=== PATIENT | male | born 1985 | race Caucasian/White ===

== ENCOUNTER 2017-02-11 23:49 | Emergency (ER) | payer SELFPAY ==
[2017-02-12 00:06] VITALS: TEMP 98; BMI 38.4
[2017-02-12] MEDS ORDERED: METOPROLOL TARTRATE 5 MG/5 ML VIAL IVPUSH ONE (00:37)
--- NOTE | 2017-02-12 00:37 | PDOC ---
History of Present Illness - General History Source: Patient Exam Limitations: No Limitations - History of Present Illness Initial Comments: 02/12/17 00:38 The patient is a 31 year old male with no significant past medical history who presents to the ED for elevated blood pressure. Patient reports he noted his blood pressure has been elevated for the past 2 weeks, however today he noted it to be over 200/100 and decided to come in. He reports associated lightheadedness and mild SOB within the past 2 weeks. Denies headache, vision changes, or paresthesias. Denies lightheadedness, diaphoresis, chest pain, jaw pain, shoulder pain, arm pain, nausea, or vomiting. States he has not been seen by a PMD in over 5 years. The patient denies fever, chills, cough, abdominal pain, and diarrhea. Allergies: NKDA Social History: No alcohol, tobacco, or drug use reported. Past Surgical History: None reported PCP: None reported <Katia Au - Last Filed: 02/12/17 02:39> - General History Source: Patient <JoséManuel bell - Last Filed: 02/12/17 06:45> - General Stated Complaint: BLOOD PRESSURE PROBLEM Time Seen by Provider: 02/12/17 00:02 Past History <Katia Au - Last Filed: 02/12/17 02:39> - Past Medical History Thyroid Disease: No - Immunization History Td Vaccination: No Immunization Up to Date: No - Psycho/Social/Smoking Cessation Hx Anxiety: No Suicidal Ideation: No Smoking Status: No Smoking History: Never smoked Have you smoked in the past 12 months: No Information on smoking cessation initiated: No Hx Alcohol Use: No Drug/Substance Use Hx: No Substance Use Type: Alcohol <Manuel Wilson - Last Filed: 02/12/17 06:45> - Past Medical History Allergies/Adverse Reactions: Allergies Allergy/AdvReac Type Severity Reaction Status Date / Time No Known Allergies Allergy Verified 02/12/17 00:03 Home Medications: Ambulatory Orders Ondansetron [Zofran *Odt*] 4 mg SL PRN PRN #14 od.tablet 03/26/15 Enalapril Maleate [Vasotec] 10 mg PO DAILY #30 tablet 02/12/17 Review of Systems - Review of Systems Able to Perform ROS?: Yes Comments:: 02/12/17 00:39 CONSTITUTIONAL: +lightheadedness Absent: fever, no chills, no fatigue EYES: Absent: visual changes ENT: Absent: ear pain, no sore throat CARDIOVASCULAR: +elevated blood pressure Absent: chest pain, no palpitations RESPIRATORY: +SOB Absent: cough GI: Absent: abdominal pain, no nausea, no vomiting, no constipation, no diarrhea GENITOURINARY: Absent: dysuria, no frequency, no hematuria MUSCULOSKELETAL: Absent: back pain, no arthralgia, no myalgia SKIN: Absent: rash NEURO: Absent: headache <Katia Au - Last Filed: 02/12/17 02:39> *Physical Exam - Vital Signs Last Vital Signs Temp Pulse Resp BP Pulse Ox 98.0 F 100 H 20 219/108 100 02/12/17 00:03 02/12/17 00:03 02/12/17 00:03 02/12/17 00:03 02/12/17 00:03 - Physical Exam Comments: 02/12/17 00:39 GENERAL: Well-appearing, well-nourished. No apparent distress. HEENT: Normocephalic, atraumatic. PERRL, EOM intact. CARDIOVASCULAR: Normal S1, S2. Regular rate and rhythm. PULMONARY: Clear to auscultation bilaterally. ABDOMEN: Soft, non-distended, non-tender. EXTREMITIES: Normal ROM in all four extremities. No gross deformities. SKIN: Warm, dry. No rash NEUROLOGICAL: No focal neurological deficits. <Katia Au - Last Filed: 02/12/17 02:39> - Vital Signs Last Vital Signs Temp Pulse Resp BP Pulse Ox 98.0 F 100 H 20 219/108 100 02/12/17 00:03 02/12/17 00:03 02/12/17 00:03 02/12/17 00:03 02/12/17 00:03 <Manuel Wilson - Last Filed: 02/12/17 06:45> Heart Score/ECG Review - ECG Impressions Comment:: 02/12/17 02:40 NSR @98bpm Possible L atrial enlargement Borderline ECG <Katia Au - Last Filed: 02/12/17 02:39> ED Treatment Course - LABORATORY CBC & Chemistry Diagram: 04/27/17 00:49 02/12/17 00:49 <Katia Au - Last Filed: 02/12/17 02:39> - LABORATORY CBC & Chemistry Diagram: 02/12/17 00:49 02/12/17 00:49 <Manuel Wilson - Last Filed: 02/12/17 06:45> Medical Decision Making - Medical Decision Making 02/12/17 06:24 Dr. Wilson: The scribe's documentation has been prepared under my direction and personally reviewed by me in its entirery. I confirm that the note above accurately reflects all work, treatment, procedures, and medical decision making performed by me. 02/12/17 06:27 Pt currently asymptomatic, however BP is still elevated. Pt advised to start to follow with a primary care doctor. Rx Vasotec 10mg to Pharmacy. <Manuel Wilson - Last Filed: 02/12/17 06:45> *DC/Admit/Observation/Transfer - Attestations Scribe Attestion: 02/12/17 00:39 Documentation prepared by Katia Au, acting as medical supply technician for Manuel Wilson MD <Katia Au - Last Filed: 02/12/17 02:39> - Discharge Dispostion Admit: No <Manuel Wilson - Last Filed: 02/12/17 06:45> Diagnosis at time of Disposition: Hypertension Qualifiers: Hypertension type: essential hypertension Qualified Code(s): I10 - Essential ( primary) hypertension - Prescriptions Prescriptions: Enalapril Maleate [Vasotec] 10 mg PO DAILY #30 tablet - Referrals Referrals: Erma Levy MD [Staff Physician] - Aldo Garsia MD [Staff Physician] - Dominick Negron MD [Staff Physician] - - Patient Instructions Printed Discharge Instructions: DI for High Blood Pressure - Post Discharge Activity Work/School Note: Back to Work
[2017-02-12] MEDS ORDERED: METOPROLOL TARTRATE 5 MG/5 ML VIAL ONE (00:53)
[2017-02-12 00:57] LABS: BASOPHIL 0.3 % (0-2.0); EOSINOPHIL 1.4 % (0-4.5); MCH 26.6 pg (25.7-33.7); MCHC 32.9 g/dl (32.0-35.9); MEAN CELL VOLUME 80.9 fl (80-96); MEAN PLT VOLUME 7.8 fl (7.5-11.1); NEUTROPHILS 64.5 % (42.8-82.8); PLATELET COUNT 260 K/MM3 (134-434); RDW 12.4 % (11.9-15.9); WHITE BLOOD COUNT 8.7 K/mm3 (4.0-10.0)
[2017-02-12 01:10] LABS: INR 1.05 (0.82-1.09); PROTHROMBIN TIME (PATIENT) 11.6 SEC (9.98-11.88)
[2017-02-12 01:21] LABS: ALBUMIN 3.9 g/dl (3.4-5.0); ANION GAP 12 (8-16); BILIRUBIN,TOTAL 0.2 mg/dL (0.2-1.0); CALCIUM 9.3 mg/dL (8.5-10.1); CO2 27 mmol/L (21-32); COCKROFT - GAULT 159.33; CREATININE 1.1 mg/dL (0.7-1.3); GLUCOSE,RANDOM 94 mg/dL (74-106); SGOT/AST 36 U/L (15-37); SGPT/ALT 52 U/L (12-78); TOT PROT 7.5 g/dl (6.4-8.2)
[2017-02-12 01:23] LABS: ALK PHOS 66 U/L (45-117); TROPONIN I 0.05 ng/ml (0.00-0.05)
[2017-02-12] MEDS ORDERED: hydrALAZINE HCL 20 MG/ML VIAL IVPUSH ONE (03:02)
[2017-02-12] MEDS ORDERED: hydrALAZINE HCL 20 MG/ML VIAL ONE (03:32)
[2017-02-12] MEDS ORDERED: LABETALOL HCL 5 MG/1 ML (100MG/20 ML VIAL) IVPUSH ONE (04:52)
[2017-02-12 04:53] VITALS: BP 194/102; PULSE 91
[2017-02-12] MEDS ORDERED: ENALAPRIL MALEATE 10 MG TABLET (FP) PO SCH (06:30)
[2017-02-12] MEDS ORDERED: ENALAPRIL MALEATE 5 MG TABLET (FP) ONE (06:33)
--- NOTE | 2017-02-12 13:26 | EKG ---
Test Reason : Blood Pressure : / mmHG Vent. Rate : 098 BPM Atrial Rate : 098 BPM P-R Int : 168 ms QRS Dur : 078 ms QT Int : 326 ms P-R-T Axes : 044 033 018 degrees QTc Int : 416 ms NORMAL SINUS RHYTHM POSSIBLE LEFT ATRIAL ENLARGEMENT BORDERLINE ECG NO PREVIOUS ECGS AVAILABLE Confirmed by DEBBIE CELAYA MD ([id number]) on 02/12/2017 1:26:27 PM Referred By: Confirmed By:DEBBIE CELAYA MD
== END 2017-02-12 07:00 | disposition home or self-care (01) ==
LOC: JER 23:49
PROC: 3E033GC Introduction of Other Therapeutic Substance into Peripheral Vein, Percutaneous Approach (ICD-10-PCS; principal; 2017-02-11)
DX: I10 Essential (primary) hypertension (principal)
CPT/HCPCS: 36415; 80053; 82550; 82553; 83690; 83880; 84484; 85025; 85610; 93005; 93010; 99283-25

== ENCOUNTER 2017-04-15 17:42 | Emergency (ER) | payer SELFPAY ==
[2017-04-15 17:51] VITALS: TEMP 97.8; BMI 37.5
--- NOTE | 2017-04-15 19:40 | PDOC ---
History of Present Illness - General History Source: Patient Exam Limitations: No Limitations - History of Present Illness Initial Comments: 04/15/17 20:12 The patient is a 31 year old male with significant past medical history of recently diagnosed hypertension who presents to the ED for 2 days of left-sided chest discomfort. Patient describes his pain as a pressure-like sensation at the left sternal border with associated SOB and occasional headache. He describes his headache as throbbing and diffuse, but has not taken any medications for his headache. States he was recently stated on vasotec 10 mg due to his elevated blood pressure and since then his blood pressure has been controlled. However, he was just recently evaluated and it was noted that his blood pressure was elevated some more. Thus, his vasotec was increased to 20 mg in the morning with an additional 10 mg at night. Denies diaphoresis, lightheadedness, palpitations, jaw pain, shoulder pain, arm pain, leg swelling, nausea, or vomiting. Patient also admits to having some weight loss. Denies recent travels or sick contacts. The patient denies fever, chills, cough, abdominal pain, and diarrhea. Allergies: NKDA Social History: No alcohol, tobacco, or drug use reported. Past Surgical History: None reported PCP: None reported <Katia Au - Last Filed: 04/15/17 20:12> - General History Source: Patient <Manuel Wilson - Last Filed: 04/16/17 03:00> - General Chief Complaint: Chest Pain Stated Complaint: CHEST PAIN Time Seen by Provider: 04/15/17 19:36 Past History <Katia Au - Last Filed: 04/15/17 20:12> - Past Medical History Thyroid Disease: No - Immunization History Td Vaccination: No Immunization Up to Date: No - Psycho/Social/Smoking Cessation Hx Anxiety: No Suicidal Ideation: No Smoking Status: No Smoking History: Never smoked Have you smoked in the past 12 months: No Hx Alcohol Use: No Drug/Substance Use Hx: No Substance Use Type: None <SteveManuel - Last Filed: 04/16/17 03:00> - Past Medical History Allergies/Adverse Reactions: Allergies Allergy/AdvReac Type Severity Reaction Status Date / Time No Known Allergies Allergy Verified 04/15/17 17:50 Home Medications: Ambulatory Orders Enalapril Maleate [Vasotec] 10 mg PO DAILY #30 tablet 02/12/17 Review of Systems - Review of Systems Able to Perform ROS?: Yes Comments:: 04/15/17 20:12 CONSTITUTIONAL: Absent: fever, no chills, no fatigue EYES: Absent: visual changes ENT: Absent: ear pain, no sore throat CARDIOVASCULAR: +left sternal border discomfort Absent: no palpitations RESPIRATORY: +SOB Absent: cough GI: Absent: abdominal pain, no nausea, no vomiting, no constipation, no diarrhea GENITOURINARY: Absent: dysuria, no frequency, no hematuria MUSCULOSKELETAL: Absent: back pain, no arthralgia, no myalgia SKIN: Absent: rash NEURO: +diffuse headache <Katia Au - Last Filed: 04/15/17 20:12> *Physical Exam - Vital Signs Last Vital Signs Temp Pulse Resp BP Pulse Ox 97.8 F 95 H 20 180/109 98 04/15/17 17:47 04/15/17 17:47 04/15/17 17:47 04/15/17 17:47 04/15/17 17:47 - Physical Exam Comments: 04/15/17 20:12 GENERAL: Well-appearing, well-nourished. No apparent distress. HEENT: Normocephalic, atraumatic. PERRL, EOM intact. CARDIOVASCULAR: Regular rate and rhythm. Normal S1, S2. PULMONARY: No evidence of respiratory distress. Clear to auscultation bilaterally. ABDOMEN: Soft, non-distended, non-tender. EXTREMITIES: Normal ROM in all four extremities. No gross deformities. SKIN: Warm, dry. No rash NEUROLOGICAL: No focal neurological deficits. <Katia Au - Last Filed: 04/15/17 20:12> - Vital Signs Last Vital Signs Temp Pulse Resp BP Pulse Ox 97.8 F 95 H 20 180/109 98 04/15/17 17:47 04/15/17 17:47 04/15/17 17:47 04/15/17 17:47 04/15/17 17:47 <Manuel Wilson - Last Filed: 04/16/17 03:00> Heart Score/ECG Review - ECG Impressions Comment:: 04/15/17 20:12 NSR @92bpm Possible L atrial enlargement Cannot r/o Anterolateral infarct, age undetermined Abnormal ECG <Katia Au - Last Filed: 04/15/17 20:12> ED Treatment Course - LABORATORY CBC & Chemistry Diagram: 04/15/17 20:20 04/15/17 20:20 <Manuel Wilson - Last Filed: 04/16/17 03:00> Medical Decision Making - Medical Decision Making 04/16/17 03:00 Dr. Wilson: The scribe's documentation has been prepared under my direction and personally reviewed by me in its entirery. I confirm that the note above accurately reflects all work, treatment, procedures, and medical decision making performed by me. <Manuel Wilson - Last Filed: 04/16/17 03:00> *DC/Admit/Observation/Transfer - Attestations Scribe Attestion: 04/15/17 20:13 Documentation prepared by Katia Au, acting as medical auditor for Manuel Wilson MD/DO. <Katia Au - Last Filed: 04/15/17 20:12> - Discharge Dispostion Admit: No <Manuel Wilson - Last Filed: 04/16/17 03:00> Diagnosis at time of Disposition: Hypertension Qualifiers: Hypertension type: essential hypertension Qualified Code(s): I10 - Essential ( primary) hypertension Chest pain Qualifiers: Chest pain type: other chest pain Qualified Code(s): R07.89 - Other chest pain ; R07.8 - Other chest pain - Discharge Dispostion Disposition: HOME Condition at time of disposition: Stable - Patient Instructions Printed Discharge Instructions: DI for Chest Pain, Hypertension (Alternative Therapy)
[2017-04-15 20:32] LABS: BASOPHIL 0.6 % (0-2.0); EOSINOPHIL 0.6 % (0-4.5); MCH 27.4 pg (25.7-33.7); MCHC 33.6 g/dl (32.0-35.9); MEAN CELL VOLUME 81.6 fl (80-96); NEUTROPHILS 73.9 % (42.8-82.8); PLATELET COUNT 283 K/MM3 (134-434); RDW 12.6 % (11.9-15.9); WHITE BLOOD COUNT 10.5 K/mm3 (4.0-10.0)
[2017-04-15 20:49] LABS: INR 1.12 (0.82-1.09); PROTHROMBIN TIME (PATIENT) 12.3 SEC (9.98-11.88)
[2017-04-15 21:15] LABS: ALBUMIN 4.1 g/dl (3.4-5.0); ANION GAP 11 (8-16); BILIRUBIN,TOTAL 0.3 mg/dL (0.2-1.0); CALCIUM 9.4 mg/dL (8.5-10.1); CO2 26 mmol/L (21-32); CREATININE 0.9 mg/dL (0.7-1.3); GLUCOSE,RANDOM 95 mg/dL (74-106); SGOT/AST 34 U/L (15-37); SGPT/ALT 47 U/L (12-78); TOT PROT 7.5 g/dl (6.4-8.2)
[2017-04-15 21:17] LABS: ALK PHOS 70 U/L (45-117); TROPONIN I 0.04 ng/ml (0.00-0.05)
[2017-04-16] MEDS ORDERED: hydrALAZINE HCL 20 MG/ML VIAL IVPUSH ONE (02:01)
[2017-04-16] MEDS ORDERED: hydrALAZINE HCL 20 MG/ML VIAL ONE (02:09)
[2017-04-16 02:15] LABS: TROPONIN I 0.04 ng/ml (0.00-0.05)
[2017-04-16 03:18] VITALS: BP 163/106; PULSE 70
--- NOTE | 2017-04-16 14:59 | EKG ---
Test Reason : Blood Pressure : / mmHG Vent. Rate : 092 BPM Atrial Rate : 092 BPM P-R Int : 180 ms QRS Dur : 078 ms QT Int : 344 ms P-R-T Axes : 055 033 032 degrees QTc Int : 425 ms NORMAL SINUS RHYTHM POSSIBLE LEFT ATRIAL ENLARGEMENT CANNOT RULE OUT ANTEROSEPTAL INFARCT , AGE UNDETERMINED ABNORMAL ECG WHEN COMPARED WITH ECG OF 12-FEB-2017 00:16, NONSPECIFIC T WAVE ABNORMALITY NO LONGER EVIDENT IN LATERAL LEADS Confirmed by DEBBIE CELAYA MD ([id number]) on 04/16/2017 2:59:20 PM Referred By: Confirmed By:DEBBIE CELAYA MD
== END 2017-04-16 03:24 | disposition home or self-care (01) ==
LOC: JER 17:42
DX: I10 Essential (primary) hypertension (principal); R07.89 Other chest pain
CPT/HCPCS: 36415; 71010-TC; 80053; 82550; 82553; 83735; 84484; 85025; 85610; 93005; 93010; 99284-25